=== PATIENT | male | born 1990 | race Caucasian/White ===

== ENCOUNTER → 2016-07-28 | Outpatient (CLI) | payer OTHER ==
--- NOTE | 2016-07-28 10:54 | NUR ---
Eval 2 Hr/Client presented for an eval as a referral from his chief development officer.
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
== END | disposition home or self-care (01) ==
LOC: ADTC.GI 08:00
DX: F10.20 Alcohol dependence, uncomplicated (principal); F12.20 Cannabis dependence, uncomplicated; F15.20 Other stimulant dependence, uncomplicated